=== PATIENT | female | born 1985 | race Caucasian/White ===

== ENCOUNTER → 2023-07-08 | Emergency (ER) | payer SELFPAY ==
--- OUTSIDE RECORDS SUMMARY | 2023-07-08 09:27 | XMS REPORT | Continuity of Care Document ---
Author Name Unknown Address [address] [facility] [address] th[address] Address [address] [facility] 1 [address] [place] [address] Care Team Providers Care Director Veterinary Name Role Phone CHRISTINE REYES Attending Clinician Unavailable MEHOP_ELIGIBILITY Attending Clinician Unavailabl e AL Attending Clinician Unavailable NO PHYSICIAN, . Attending Clinician Unavailable SHERMAN GRIFFIN Attending Clinician Unavaila ble MEHOP_ELIGIBILITY Admitting Clinician Unavailabl e AL Admitting Clinician Unavailable Payers Payer Name Policy Type Policy Number Effective Date Expirati on Date Source Encounters Start Date/Time End Date/Time Encounter Type Admission Type Attending Clinicians Care Facility Care Department Encounter ID Source 2022-10-07 21:01:07 Outpatient [facility] [id number] [facility] 2023-07-05 12:33:00 2023-07-05 14:25:00 Emergency ER CHRISTINE REYES [facility] [id number] [facility] 2022-10-25 00:00:00 2022-10-25 00:00:00 Outpatient MEALICIA_MYRA HOBBS [facility] [id number] [facility] 2022-02-08 00:00:00 2022-02-08 00:00:00 Outpatient KARUNA LEYV [facility] [id number] [facility] 2014-05-23 16:48:00 2014-05-23 16:48:00 Outpatient EL NO PHYSICIAN, . [facility] [id number] [facility] 2013-11-25 16:12:00 2013-11-25 20:13:00 Emergency ER SHERMAN GRIFFIN [facility] [id number] [facility]
[2023-07-08 10:15] LABS: Specific Gravity 1.008 (1.005-1.030)
[2023-07-08 10:20] LABS: Specific Gravity 1.008 (1.005-1.030); Urine Bacteria None Seen /HPF (<20); Urine Bilirubin NEGATIVE (Negative); Urine Blood Negative (Negative); Urine Clarity Turbid (Clear); Urine Color Light-Yellow (Yellow); Urine Glucose NEGATIVE (Negative); Urine Protein NEGATIVE (Negative); Urine RBC <5 /HPF (None Seen); Urine Urobilinogen Normal (Normal)
[2023-07-08 10:45] LABS: Absolute Lymphocytes (CBC) 0.6 K/uL (0.7-4.9); Hematocrit 29.2 % (36.0-45.0); Lymphocytes % 19.1 % (15.3-44.8); MCV 84.8 fL (80-100); MPV 6.7 fL (7.6-11.3); Platelets 126 thou/uL (152-406); RBC Red Blood Cell Count 3.45 M/uL (3.86-4.86)
[2023-07-08 10:50] LABS: Protime INR 1.01
[2023-07-08 11:03] LABS: Barbiturates NEGATIVE (NEGATIVE); Benzodiazepines NEGATIVE (NEGATIVE); Cocaine POSITIVE (NEGATIVE); METHAMPHETAM NEGATIVE (NEGATIVE); Methadone NEGATIVE (NEGATIVE); Opiates NEGATIVE (NEGATIVE); Phencyclidine NEGATIVE (NEGATIVE); THC Cannibis NEGATIVE (NEGATIVE)
[2023-07-08 11:04] LABS: Albumin 2.8 g/dL (3.4-5.0); Bilirubin Direct 0.1 mg/dL (0-0.2); Bilirubin Indirect, Calculated 0.3 mg/dL (0.2-0.8); Bilirubin Total 0.4 mg/dL (0.2-1.0); Magnesium 1.9 mg/dL (1.6-2.4); Potassium 3.4 mEq/L (3.5-5.1); Protein, Total 6.6 g/dL (6.4-8.2); Troponin High Sensitivity 3.3 pg/mL (<58.9)
--- NOTE | 2023-07-08 11:16 | RAD REPORT ---
EXAM DESCRIPTION: [facility]08/2023 11:08 am CLINICAL HISTORY: edema COMPARISON: No comparisons TECHNIQUE: Portable AP view of the chest. FINDINGS: The lungs are clear. No pneumothorax or effusion. The cardiomediastinal contours are unre markable. IMPRESSION: No acute cardiopulmonary process.
--- NOTE | 2023-07-08 11:23 | RAD REPORT ---
EXAM DESCRIPTION: US - Extrem Venous W Compress Abelardo - 07/08/2023 11:07 am CLINICAL HISTORY: Pain COMPARISON: None. TECHNIQUE: Real-time sonographic evaluation of the bilateral lower extremity deep venous systems was performed. FINDINGS: Normal compressibility, flow augmentation, phasic flow and spontaneous flow is identified in both the left and right lower extremity deep venous systems. No intraluminal filling defects seen. IMPRESSION: No DVT in either lower extremity.
--- NOTE | 2023-07-08 13:32 | EDPHYS ---
Physician Documentation [facility] Name: Niru Nation Age: 37 yrs Sex: Female : 1985 Arrival Date: 07/08/2023 Time: 09:24 Bed 20 Private MD: ED Physician Bro Grossman HPI: 07/08 10:00 This 37 yrs old Female presents to ER via Ambulatory with complaints of Swollen cp feet/legs, Headache. 10:00 The patient presents with swelling. cp 10:00 The complaints affect the right foot and left foot. Context: resulted from an unknown cp cause, the patient can fully bear weight, the patient is able to ambulate, with mild difficulty. Onset: The symptoms/episode began/occurred 5 day(s) ago. Associated signs and symptoms: Pertinent positives: headache, Pertinent negatives fever, numbness, vomiting. Treatment prior to arrival includes: no previous treatment. Severity of symptoms: in the emergency department the symptoms are unchanged. 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 - Social history:: Smoking status: Patient reports the use of cigarette tobacco products, Patient/guardian denies using alcohol, street drugs. ROS: 10:05 Constitutional: Negative for body aches, chills, fever, poor PO intake, cp 10:05 Cardiovascular: Positive for edema, Negative for chest pain, palpitations, cp 10:05 Respiratory: Negative for cough, wheezing, 10:05 Abdomen/GI: Negative for abdominal pain, vomiting, diarrhea, constipation, 10:05 Eyes: Negative for injury, pain, redness, and discharge, cp 10:05 ENT: Negative for drainage from ear(s), ear pain, sore throat, difficulty swallowing, cp difficulty handling secretions, 10:05 Back: Negative for pain at rest, pain with movement, 10:05 Skin: Negative for rash, 10:05 Neuro: Positive for headache, Negative for altered mental status, numbness, syncope, weakness, 10:05 All other systems are negative, Exam: 10:10 Constitutional: The patient appears in no acute distress, alert, awake, cp non-diaphoretic, non-toxic, well developed, well nourished, 10:10 Head/Face: Normocephalic, atraumatic. cp 10:10 Eyes: Periorbital structures: appear normal, Pupils: equal, round, and reactive to light and accomodation, Extraocular movements: intact throughout, Conjunctiva: normal, no exudate, no injection, Sclera: no appreciated abnormality, Lids and lashes: appear normal, bilaterally, 10:10 ENT: External ear(s): are unremarkable, Nose: is normal, Mouth: Lips: moist, Oral mucosa: pink and intact, moist, Posterior pharynx: Airway: no evidence of obstruction, patent, 10:10 Neck: ROM/movement: is normal, is supple, without pain, no range of motions limitations, no meningismus, no nuchal rigidity, 10:10 Chest/axilla: Inspection: normal, 10:10 Cardiovascular: Rate: tachycardic, Rhythm: regular, Edema: pedal edema, that is mild, JVD: is not appreciated, 10:10 Respiratory: the patient does not display signs of respiratory distress, Respirations: normal, no use of accessory muscles, no retractions, labored breathing, is not present, Breath sounds: are clear throughout, no decreased breath sounds, no stridor, no wheezing, 10:10 Abdomen/GI: Inspection: abdomen appears normal, Palpation: abdomen is soft and non-tender, in all quadrants, 10:10 Back: pain, is absent, ROM is normal, 10:10 Skin: rash can be described as erythematous, papular, on the right foot and left foot and right lower leg and left lower leg, 10:10 Neuro: Orientation: to person, place \T\ time. Mentation: is normal, Motor: moves all fours, strength is normal, Sensation: is normal, 10:27 ECG was reviewed by the Attending Physician. cp Vital Signs: 09:41 BP 106 / 71; Pulse 103; Resp 17; Temp 99; Pulse Ox 100% ; Weight 63.5 kg; Height 5 ft. jl7 7 in. ; Pain 9/10; 10:00 BP 105 / 53; Pulse 84; Resp 16; Pulse Ox 98% ; ko1 11:17 BP 100 / 63; Pulse 88; Resp 15; Pulse Ox 99% ; ko1 13:00 BP 108 / 64; Pulse 85; Resp 16; Pulse Ox 99% ; ko1 09:41 Body Mass Index 21.93 (63.50 kg, 170.18 cm) 7 09:41 Pain Scale: Adult jl7 MDM: 09:38 Patient medically screened. 13:25 Data reviewed: vital signs, nurses notes, lab test result(s), EKG, radiologic studies, cp plain films. 13:25 Refusal of service: The patient/guardian displays adequate decision making capability cp and despite a detailed discussion of alternatives, benefits, risks, and consequences refuses: CT Scan. ED course: Discussed results of today's testing including urinalysis positive for cocaine. patient denies use of cocaine and became upset and threw blood pressure cuff toward me. Recommended CT chest for PE and head CT but patient declines to testing at this time and requests discharge. 07/08 10:00 Order name: Basic Metabolic Panel; Complete Time: 11:06 07/08 11:06 Interpretation: Normal except: NA 133; K 3.4; GLUC 145; BUN 5; CA 8.1. 07/08 10:00 Order name: CBC with Diff; Complete Time: 11: 07/08 11:06 Interpretation: Normal except: WBC 3.10; RBC 3.45; HGB 10.2; HCT 29.2; PLT 126; LYMA cp 0.6; MPV 6.7. 07/08 10:00 Order name: LFT's; Complete Time: 11: 07/08 11:06 Interpretation: Normal except: ALB 2.8; GLOB 3.8; A/G 0.7. 07/08 10:00 Order name: Magnesium; Complete Time: 11:06 07/08 10:00 Order name: NT PRO-BNP; Complete Time: 11: 07/08 11:07 Interpretation: Abnormal: NT PRO-BNP 795. 07/08 10:00 Order name: PT-INR; Complete Time: 11:43 07/08 10:00 Order name: Troponin HS; Complete Time: 11:06 cp 07/08 11:07 Interpretation: Reviewed. 07/08 10:00 Order name: Urinalysis W/Microscopic; Complete Time: 10: 07/08 10:26 Interpretation: Normal except: [facility] Turbid. cp 07/08 10:00 Order name: PREGU; Complete Time: 10:26 cp 07/08 10:36 Order name: UDS; Complete Time: 11:06 cp 07/08 11:07 Interpretation: Normal except: ANTONIA POSITIVE. cp 07/08 11:11 Order name: LAB Add On cp 07/08 11:14 Order name: D-Dimer; Complete Time: 11:43 EDMS 07/08 10:00 Order name: XRAY Chest (1 view); Complete Time: 11:43 cp 07/08 10:00 Order name: US Extremity Venous W Compression Abelardo; Complete Time: 11:43 cp 07/08 10:00 Order name: EKG; Complete Time: 10:00 cp 07/08 10:00 Order name: Cardiac monitoring; Complete Time: 10:08 cp 07/08 10:00 Order name: EKG - Nurse/Tech; Complete Time: 10:33 cp 07/08 10:00 Order name: IV Saline Lock; Complete Time: 10:37 cp 07/08 10:00 Order name: Labs collected and sent; Complete Time: 10:37 cp 07/08 10:00 Order name: O2 Per Protocol; Complete Time: 10:08 cp 07/08 10:00 Order name: O2 Sat Monitoring; Complete Time: 10:08 cp EC:27 Rate is 84 beats/min. Rhythm is regular. IL interval is normal. QRS interval is normal. cp QT interval is normal. Interpreted by me. Reviewed by me. Administered Medications: No medications were administered Disposition: 16:32 Co-signature as Attending Physician, Bro Grossman MD I reviewed the patient's care rt provided by the Advanced Practice Provider and agree with the diagnosis and treatment plan. Disposition Summary: 07/08/23 13:30 Discharge Ordered Notes: Location: Home cp Problem: new cp Symptoms: are unchanged cp Condition: Stable cp Diagnosis - Edema, unspecified cp - Anemia, unspecified cp - Cocaine use, unspecified, uncomplicated cp Followup: cp - With: Private Physician - When: 1 - 2 days - Reason: Recheck today's complaints Discharge Instructions: - Discharge Summary Sheet cp - Anemia cp - Peripheral Edema cp - How to Use Compression Stockings cp Forms: - Medication Reconciliation Form cp - Thank You Letter cp - Antibiotic Education cp - Prescription Opioid Use cp - Patient Portal Instructions cp - Leadership Thank You Letter cp Signatures: Dispatcher [employer] EDMS Deny Boyle PA PA cp Leal, Jahala RN RN jl7 Bro Grossman MD MD rt Corrections: (The following items were deleted from the chart) 09:44 09:43 PMHx: None; jl7 jl7 11:16 11:11 Head Brain Wo Cont+CT.RAD.BRZ ordered. EDMS EDMS 11:30 11:11 D-DIMER+COAG.LAB.BRZ ordered. EDMS EDMS
--- NOTE | 2023-07-08 13:32 | ER ---
[facility] Name: Niru Nation Age: 37 yrs Sex: Female : 1985 Arrival Date: 07/08/2023 Time: 09:24 Bed 20 Private MD: Diagnosis: Edema, unspecified;Anemia, unspecified;Cocaine use, unspecified, uncomplicated Presentation: 07/08 09:41 Chief complaint: Patient states: Swelling to bilateral feet and RUTH x 5 days; pt with jl7 slurred speech, denies alcohol and drugs use at this time. Coronavirus screen: At this time, the client does not indicate any symptoms associated with coronavirus-19. Ebola Screen: No symptoms or risks identified at this time. Initial Sepsis Screen: Does the patient meet any 2 criteria? No. Patient's initial sepsis screen is negative. Does the patient have a suspected source of infection? No. Patient's initial sepsis screen is negative. Risk Assessment: Do you want to hurt yourself or someone else? Patient reports no desire to harm self or others. Onset of symptoms is unknown. 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 - Social history:: Smoking status: Patient reports the use of cigarette tobacco products, Patient/guardian denies using alcohol, street drugs. Screenin:17 [facility] ED Fall Risk Assessment (Adult) History of falling in the last 3 months, ko1 including since admission No falls in past 3 months (0 pts) Confusion or Disorientation No (0 pts) Intoxicated or Sedated No (0 pts) Impaired Gait No (0 pts) Mobility Assist Device Used No (0 pt) Altered Elimination No (0 pt) Score/Fall Risk Level 0 - 2 = Low Risk Oriented to surroundings, Maintained a safe environment, Educated pt \T\ family on fall prevention, incl call for assistance when getting out of bed, Assessed \T\ reinforced patient's understanding of fall precautions, Provided non-skid footwear, Hourly rounding (assess needs \T\ fall precautionary measures) done, Used ambulatory aids as needed (educated on \T\ assisted with), Used gait belt as appropriate. Abuse screen: Denies threats or abuse. Denies injuries from another. Nutritional screening: No deficits noted. Tuberculosis screening: No symptoms or risk factors identified. Assessment: 10:00 General: Appears in no apparent distress. Behavior is calm, cooperative, appropriate ko1 for age. Pain: Complains of pain in top of head and forehead. Neuro: Reports headache frontal area. Cardiovascular: No deficits noted. Respiratory: No deficits noted. GI: No deficits noted. : No deficits noted. EENT: No deficits noted. Derm: Bruising that is on bilateral arms. Derm: Musculoskeletal: Swelling present in bilateral feet. Vital Signs: 09:41 BP 106 / 71; Pulse 103; Resp 17; Temp 99; Pulse Ox 100% ; Weight 63.5 kg; Height 5 ft. jl7 7 in. ; Pain 9/10; 10:00 BP 105 / 53; Pulse 84; Resp 16; Pulse Ox 98% ; ko1 11:17 BP 100 / 63; Pulse 88; Resp 15; Pulse Ox 99% ; ko1 13:00 BP 108 / 64; Pulse 85; Resp 16; Pulse Ox 99% ; ko1 09:41 Body Mass Index 21.93 (63.50 kg, 170.18 cm) jl7 09:41 Pain Scale: Adult jl7 ED Course: 09:27 Patient arrived in ED. ts1 09:37 Jeane Luo, DANIAL is Primary Nurse. ko1 09:38 Deny Boyle PA is PHCP. cp 09:38 Bro Grossman MD is Attending Physician. cp 09:43 Triage completed. jl7 09:43 Arm band placed on right wrist. jl7 10:08 Urinalysis W/Microscopic Sent. ko1 10:08 PREGU Sent. ko1 10:37 Basic Metabolic Panel Sent. ko1 10:37 CBC with Diff Sent. ko1 10:37 LFT's Sent. ko1 10:37 Magnesium Sent. ko1 10:37 NT PRO-BNP Sent. ko1 10:37 PT-INR Sent. ko1 10:37 Troponin HS Sent. ko1 10:40 UDS Sent. ko1 10:41 Inserted saline lock: 24 gauge in left forearm, using aseptic technique. Blood ds4 collected. 11:09 US Extremity Venous W Compression Abelardo In Process Unspecified. EDMS 11:10 XRAY Chest (1 view) In Process Unspecified. EDMS 11:17 Patient has correct armband on for positive identification. Bed in low position. Call ko1 light in reach. Side rails up X 1. Client placed on continuous cardiac and pulse oximetry monitoring. NIBP monitoring applied. school lunch monitor on. Door closed. Noise minimized. Lights dimmed. Warm blanket given. 12:09 LAB Add On Sent. ko1 12:31 Radiology exam delayed due to IV insertion attempt and/or patient not having mw3 appropriate IV at this time. 13:00 Provided Education on: na. ko1 13:35 No provider procedures requiring assistance completed. IV discontinued, intact, ko1 bleeding controlled, No redness/swelling at site. Pressure dressing applied. Administered Medications: No medications were administered Medication: 11:17 VIS not applicable for this client. ko1 Outcome: 13:30 Discharge ordered by . sierra 13:35 Discharged to home ambulatory, ko1 13:35 Condition: stable 13:35 Discharge instructions given to patient, patient left prior to getting instructions 13:36 Patient left the ED. ko1 Signatures: Dispatcher [employer] EDMS Connor Ulrich ds4 Deny Boyle PA PA cp Leal, Jahala, DANIAL RN jesus [email or web address] Andreina Contreras mw3 Jeane Luo RN RN ko1 Vi Alvarado, WILLIAM PAS ts1 Corrections: (The following items were deleted from the chart) 09:44 09:43 PMHx: None; clarita otto 11:17 10:00 BP 100 / 63; Pulse 88bpm; Resp 15bpm; Pulse Ox 99%; ko1 ko1
[2023-07-08 13:55] VITALS: TEMP 99
[2023-07-08 14:03] VITALS: O2SAT 99
[2023-07-08 14:10] VITALS: BP 108/64
== END ==
LOC: ER 09:24
DX: F14.10 Cocaine abuse, uncomplicated (principal); R60.9 Edema, unspecified; D64.9 Anemia, unspecified
CPT/HCPCS: 36415; 71045; 80048; 80076; 80307; 81001; 81025; 83735; 83880; 84484; 85025; 85379; 85610; 93005; 93970; 99284